=== PATIENT | female | born 1975 | race Caucasian/White ===

== ENCOUNTER 2017-04-08 15:59 | Outpatient (CLI) ==
--- NOTE | 2017-04-08 16:24 | DI ---
EXAM: Two views of the chest. History: Chest pain. Comparison: Chest radiograph 02/18/2015 Findings: Heart size is upper limits of normal. No focal consolidation. No appreciable pleural flu id and no pneumothorax. No acute osseous abnormalities. Impression: Upper limits of normal heart size without acute disease in the chest.
== END 2017-04-08 16:00 | disposition home or self-care (01) ==
LOC: RAD 15:59
PROVIDERS: ATTEND Physician Assistant
DX: R07.9 Chest pain, unspecified (principal)
CPT/HCPCS: 93005; 93010

== ENCOUNTER 2018-03-25 10:41 | Outpatient (CLI) | END 2018-03-25 10:42 | disposition home or self-care (01) | LOC: LAB 10:41 | PROVIDERS: ATTEND Internal Medicine Endocrinology, Diabetes & Metabolism | DX: E87.6 Hypokalemia (principal); R63.5 Abnormal weight gain | CPT/HCPCS: 36415; 80053; 82670; 83001; 83002; 84439; 84443 ==

== ENCOUNTER 2018-03-31 12:19 | Outpatient (CLI) | END 2018-03-31 12:20 | disposition home or self-care (01) | LOC: LAB 12:19 | PROVIDERS: ATTEND Physician Assistant | DX: E87.6 Hypokalemia (principal) | CPT/HCPCS: 36415; 80053; 84132 ==

== ENCOUNTER 2018-04-01 16:35 | Outpatient (CLI) | END 2018-04-01 16:36 | disposition home or self-care (01) | LOC: LAB 16:35 | PROVIDERS: ATTEND Internal Medicine Endocrinology, Diabetes & Metabolism | DX: R63.5 Abnormal weight gain (principal) ==

== ENCOUNTER 2018-04-07 13:52 | Outpatient (CLI) | END 2018-04-07 13:53 | disposition home or self-care (01) | LOC: LAB 13:52 | PROVIDERS: ATTEND Physician Assistant | DX: E87.6 Hypokalemia (principal) | CPT/HCPCS: 36415; 80048 ==